=== PATIENT | male | born 1955 | race Caucasian/White ===

== ENCOUNTER → 2016-11-28 | Outpatient (CLI) | payer OTHER ==
[~2016-11-28] MED LIST: ASPIRIN 325MG325 MG PO; BUMEX 1MG TABLET1 MG PO; DILTIAZEM 24HR360 MG PO; FOLIC ACID 1 MG1 MG PO; HYDRALAZINE HCL10 MG PO; LISINOPRIL10 MG PO; LOPRESSOR100 MG PO; PHENERGAN 25 MG25 M1 PO; POTASSIUM CHLO20 ME1 PO; PRAVACHOL40 MG PO; PRILOSEC OTC20 MG PO; REQUIP1 MG PO; SINGULAIR10 MG PO; TRAZODONE HCL150 MG PO; ZANTAC300 MG PO; ZAROXOLYN/DIUL2.5 MG PO; ZYRTEC10 MG PO
[2016-11-28 08:48] LABS: BUN/CREATININE RATIO 13 (0-10)
== END ==
LOC: LAB 07:59
PROVIDERS: Internal Medicine Nephrology
DX: E87.6 Hypokalemia (principal)
CPT/HCPCS: 36415; 80048

== ENCOUNTER → 2016-11-29 | Outpatient (CLI) | payer OTHER ==
[2016-11-29 14:11] LABS: BUN/CREATININE RATIO 13 (0-10)
== END ==
LOC: LAB 12:41
PROVIDERS: Internal Medicine Nephrology
DX: E87.6 Hypokalemia (principal)
CPT/HCPCS: 36415; 80048; 82436; 83930; 83935; 84133; 84300

== ENCOUNTER → 2016-12-06 | Outpatient (CLI) | payer OTHER ==
[2016-12-06 13:37] LABS: BUN/CREATININE RATIO 13 (0-10)
== END ==
LOC: LAB 12:46
PROVIDERS: Internal Medicine Nephrology
DX: E87.6 Hypokalemia (principal)
CPT/HCPCS: 36415; 80048

== ENCOUNTER → 2016-12-15 | Outpatient (CLI) | payer OTHER | LOC: CT 07:35 | DX: E27.9 Disorder of adrenal gland, unspecified (principal); D35.01 Benign neoplasm of right adrenal gland | CPT/HCPCS: 74170; J7050; Q9962 ==

== ENCOUNTER → 2016-12-26 | Outpatient (CLI) | payer OTHER | LOC: RT 09:42 | DX: I25.10 Atherosclerotic heart disease of native coronary artery without angina pectoris (principal) | CPT/HCPCS: 93005 ==

== ENCOUNTER → 2017-01-31 | Outpatient (CLI) | payer OTHER | LOC: LAB 11:38 | DX: E87.6 Hypokalemia (principal) | CPT/HCPCS: 36415; 84132 ==

== ENCOUNTER → 2017-03-13 | Outpatient (CLI) | payer OTHER ==
[2017-03-13 10:11] LABS: BUN/CREATININE RATIO 10 (0-10)
== END ==
LOC: LAB 09:13
PROVIDERS: Internal Medicine Nephrology
DX: E87.6 Hypokalemia (principal)
CPT/HCPCS: 36415; 80048

== ENCOUNTER 2017-06-12 11:59 | Emergency (ER) | payer OTHER ==
[2017-06-12 13:31] LABS: HEMOGLOBIN 14.5 gm/dl (14.0-17.5); RED BLOOD COUNT 4.61 M/UL (4.20-5.50); WHITE BLOOD COUNT 11.2 K/UL (4.5-11.0)
== END 2017-06-12 15:05 | disposition home or self-care (01) ==
LOC: ER1 11:59
PROVIDERS: Nurse Practitioner Family
DX: J44.1 Chronic obstructive pulmonary disease with (acute) exacerbation (principal); I13.0 Hypertensive heart and chronic kidney disease with heart failure and stage 1 through stage 4 chronic kidney disease, or unspecified chronic kidney disease; N18.9 Chronic kidney disease, unspecified; E87.5 Hyperkalemia; I25.810 Atherosclerosis of coronary artery bypass graft(s) without angina pectoris; Z87.19 Personal history of other diseases of the digestive system; F17.210 Nicotine dependence, cigarettes, uncomplicated
CPT/HCPCS: 36415; 71020; 80053; 82550; 82553; 83605; 83874; 83880; 84484; 85025; 93005; 94664; 96374; 99285; J2930

== ENCOUNTER → 2021-04-20 | Outpatient (CLI) | payer OTHER | LOC: EXRD 15:09 | DX: N45.3 Epididymo-orchitis (principal) | CPT/HCPCS: 76870 ==

== ENCOUNTER → 2021-12-07 | Outpatient (CLI) | payer MEDICARE | LOC: KOH-I 14:31 | DX: J32.0 Chronic maxillary sinusitis (principal); J34.2 Deviated nasal septum | CPT/HCPCS: 70486 ==

== ENCOUNTER → 2022-04-18 | Outpatient (CLI) | payer MEDICARE, OTHER | LOC: KOH-I 08:08 | DX: N50.819 Testicular pain, unspecified (principal) | CPT/HCPCS: 76870 ==